=== PATIENT | female | born 1955 | race Caucasian/White ===

== ENCOUNTER → 2017-06-18 | Outpatient (REF) | LOC: ZLAB.WCH 17:58 | DX: Z01.89 Encounter for other specified special examinations (principal) ==

== ENCOUNTER → 2017-06-30 | Outpatient (CLI) | payer OTHER | LOC: MC.RAD 08:40 | DX: Z12.31 Encounter for screening mammogram for malignant neoplasm of breast (principal) ==

== ENCOUNTER 2017-12-27 09:50 | Emergency (ER) | payer OTHER ==
[~2017-12-27] VITALS: Ht 170.2 cm; Wt 71.8 kg
[~2017-12-27 09:50] MED LIST: ALDACTONE 25MG25 M1 PO; CORDARONE200 MG/TAB PO; COREG 25MG25 MG/TAB PO; DOXYCYCLINE HY100 MG PO; ELIQUIS 5MG PO; LIPITOR20 MG PO; PREMARIN .3MG0.3 MG PO; PRINIVIL10 MG PO; XANAX .25M0.25 MG/TA PO
[2017-12-27 09:55] VITALS: TEMP 97
[2017-12-27 10:40] LABS: BASO % 0.5 % (0.0-2.0); EOS # 0.2 (0.0-0.7); EOS % 2.3 % (0-4.0); GRAN # 6.2 (1.4-6.5); GRAN % 71.3 % (42.2-75.2); HEMATOCRIT 41.4 % (37.0-47.0); HEMOGLOBIN 13.5 g/dl (12.5-16.0); LYMPH # 1.5 (1.2-3.4); LYMPH % 17.2 % (20.0-51.0); MEAN CELL VOLUME 86 fl (80.0-100.0); MEAN CORPUSCULAR HEMOGLOBIN 28 pg (27.0-31.0); MEAN CORPUSCULAR HGB CONC 33 g/dl (33.0-37.0); MEAN PLATELET VOLUME 10.7 fl (7.4-10.4); MONO # 0.7 (0.1-0.6); MONO % 8.4 % (1.7-9.3); PLATELET COUNT 318 K/mm3 (130-400); RED BLOOD COUNT 4.82 M/mm3 (4.10-5.30); REDCELL DISTRIBUTION WIDTH-CV 13.9 % (11.5-14.5)
[2017-12-27 10:47] LABS: ALANINE AMINOTRANSFERASE 39 U/L (9-52); ALBUMIN 4.1 gm/dL (3.5-5.0); ALKALINE PHOSPHATASE 84 U/L (50-136); ANION GAP 14 mmol/L (7-16); AST,SGOT 16 U/L (15-37); BILIRUBIN,TOTAL 0.5 mg/dL (0.0-1.0); BLOOD UREA NITROGEN 23 mg/dL (7-17); CALCIUM 9.2 mg/dL (8.4-10.2); CARBON DIOXIDE 23 mmol/L (22-30); CHLORIDE 100 mmol/L (98-107); CREATININE, serum 0.96 mg/dL (0.52-1.25); GLUCOSE 107 mg/dL (74-106); LIPASE 112 U/L (23-300); POTASSIUM 4.7 mmol/L (3.4-5.0); SODIUM 137 mmol/L (137-145); TOTAL PROTEIN 7.1 gm/dL (6.4-8.2)
[2017-12-27 10:48] LABS: CREATINE KINASE < 20 U/L (30-135)
[2017-12-27 10:59] LABS: INR 1.4 (0.8-3.0); PROTHROMBIN TIME 15.4 SECONDS (9.7-12.8)
[2017-12-27 11:02] LABS: PARTIAL THROMBOPLASTIN TIME 39.8 SECONDS (26.0-37.0)
[2017-12-27 11:04] LABS: TROPONIN-I < 0.012 ng/mL (0.000-0.034)
[2017-12-27 12:17] VITALS: BP 117/78; PULSE 70
== END 2017-12-27 12:17 | disposition home or self-care (01) ==
LOC: COL.ER 09:50
PROVIDERS: Emergency Medicine
DX: R42 Dizziness and giddiness (principal); I48.91 Unspecified atrial fibrillation; I50.9 Heart failure, unspecified; I25.2 Old myocardial infarction; I25.5 Ischemic cardiomyopathy; F17.210 Nicotine dependence, cigarettes, uncomplicated; Z95.5 Presence of coronary angioplasty implant and graft

== ENCOUNTER → 2019-03-21 | Outpatient (CLI) | payer OTHER | LOC: COL.RAD 07:30 | DX: M25.511 Pain in right shoulder (principal) | CPT/HCPCS: J3301; Q9967 ==

== ENCOUNTER 2019-04-06 12:00 | Outpatient (CLI) | payer OTHER ==
[~2019-04-06] VITALS: Ht 170.2 cm; Wt 82.4 kg
[~2019-04-06 12:00] MED LIST changes: +DAZIDOX10 MG PO; +ENTRESTO 97 MG1 EACH PO; +FLEXERIL 1010 MG/TAB PO; +PEPCID 20MG TAB20 MG PO; +XANAX 0.5MG0.5 MG PO; +ZYRTEC 10MG10 MG PO
[2019-04-06 12:17] VITALS: BP 146/90; PULSE 73
[2019-04-06 13:00] VITALS: BP 114/76; BP 116/73; PULSE 65; PULSE 72
[2019-04-06 13:15] VITALS: BP 125/75; PULSE 70
[2019-04-06 13:24] LABS: GLUCOSE,CSF 57 mg/dL (40-70); TOTAL PROTEIN,CSF 40 mg/dL (15-45)
[2019-04-06 13:30] VITALS: BP 134/68; PULSE 77
[2019-04-06 14:00] VITALS: BP 146/94; PULSE 78
[2019-04-06 14:18] LABS: CSF APPEARANCE CLEAR; CSF COLOR COLORLESS; CSF RBC 6 /mm3 (0-0)
[2019-04-06 14:19] LABS: CSF MONONUCLEAR 100 % (70-100); CSF POLYMORPHONUCLEAR 0 % (0-6)
== END 2019-04-06 14:00 | disposition home or self-care (01) ==
LOC: COL.RAD 12:00
PROVIDERS: Psychiatry & Neurology Neurology
DX: G37.9 Demyelinating disease of central nervous system, unspecified (principal)

== ENCOUNTER → 2020-05-24 | Outpatient (CLI) | payer OTHER | LOC: MC.RAD 09:15 | DX: Z12.31 Encounter for screening mammogram for malignant neoplasm of breast (principal) ==

== ENCOUNTER → 2021-11-20 | Outpatient (CLI) | payer MEDICARE, OTHER | LOC: MC.RAD 10:45 | DX: Z12.31 Encounter for screening mammogram for malignant neoplasm of breast (principal) ==

== ENCOUNTER → 2023-07-23 | Outpatient (CLI) | payer MEDICARE, OTHER | LOC: MC.RAD 08:53 | DX: Z12.31 Encounter for screening mammogram for malignant neoplasm of breast (principal) ==